=== PATIENT | female | born 1975 | race Caucasian/White ===

== ENCOUNTER 2017-09-25 09:29 | Emergency (ER) | payer SELFPAY ==
[~2017-09-25] VITALS: Ht 165.1 cm; Wt 100.2 kg
[2017-09-25 09:44] VITALS: BP 126/83
--- NOTE | 2017-09-25 09:55 | NUR ---
APATIENT PRESENTS TO ED WITH C/O RIGHT ARM PAIN/ELBOW PAIN SINCE LAST NIGHT;RT ARM IS SWOLLEN AND REDDENED; DENIES INJURY OR TRAUMA. PT STATES "I THINK I GOT BIT BY A SPIDER."HX OF CHOLECYSTECTOMY; DENIES N/V/D; SKIN IS PINK/WARM/DRY; AAOX4 WITH EVEN AND STEADY GAIT; LUNGS CLEAR BL; HR EVEN AND REGULAR; PT DENIES ANY FEVER, CP, SOB, OR COUGH AT THIS TIME; PATIENT STATES PAIN OF 8/10 AT THIS TIME;PATIENT POSITIONED FOR COMFORT; HOB ELEVATED; BEDRAILS UP X2; BED DOWN. ER MD MADE AWARE OF PT STATUS.
--- NOTE | 2017-09-25 10:30 | NUR ---
PT RESTING ON BED;NO ACUTE DISTRESS NOTED;WILL CONTINUE MONITOR.
--- NOTE | 2017-09-25 10:38 | NUR ---
DR HUDSON AT BEDSIDE EVALUATING PT.
[2017-09-25] MEDS ORDERED: CLINDAMYCIN 150 MG CAP PO ONE (10:40)
[2017-09-25] MEDS ORDERED: traMADol 50 MG TAB PO ONE (10:40)
[2017-09-25 11:11] VITALS: BP 124/84
--- NOTE | 2017-09-25 11:11 | NUR ---
Patient discharged with v/s stable. Written and verbal after care instructions given and explained. Patient alert, oriented and verbalized understanding of instructions. Ambulatory with steady gait. All questions addressed prior to discharge. ID band removed. Patient advised to follow up with PMD. Rx of motrin,tramadol and clindamycin given. Patient educated on indication of medication including possible reaction and side effects. Opportunity to ask questions provided and answered.
== END 2017-09-25 11:11 | disposition home or self-care (01) ==
LOC: MED 09:29
DX: T63.481A Toxic effect of venom of other arthropod, accidental (unintentional), initial encounter (principal); R60.0 Localized edema; L03.113 Cellulitis of right upper limb; Z88.1 Allergy status to other antibiotic agents; Z90.49 Acquired absence of other specified parts of digestive tract; Y92.89 Other specified places as the place of occurrence of the external cause
CPT/HCPCS: 90471; 90715; 99283